=== PATIENT | male | born 1955 | race Caucasian/White ===

== ENCOUNTER 2016-09-04 15:50 | Inpatient (IN) | payer BC, MEDICARE ==
[~2016-09-04] VITALS: Ht 177.8 cm; Wt 109.0 kg
[~2016-09-04 15:50] MED LIST: ALPR0.25 PO; AMLO10TA4 PO; CARV3.1212 PO; CHOL200012 PO; FURO-93 PO; HYDR-882 PO; INSU100V SQ-INSULIN; INSU100V8 SQ
[2016-09-04] MEDS ORDERED: ASPIRIN 81 MG TABLET CHEW PO ONE (16:30)
[2016-09-04] MEDS ORDERED: SODIUM CHLORIDE FLUSH 10ML SYR IVF ONE (16:30)
[2016-09-04] MEDS ORDERED: NITROGLYCERIN SINGLE TAB 0.4 MG SL ONE ×2 (16:55→17:30)
[2016-09-04] MEDS ORDERED: ASPIRIN 81 MG TABLET CHEW ONE (16:55)
[2016-09-04] MEDS: NITROGLYCERIN SINGLE TAB 0.4 MG SL PRN ×3 (16:58→17:30)
[2016-09-04 17:04] LABS: BLOOD UREA NITROGEN 34 mg/dL (7-18)
[2016-09-04 17:09] LABS: IS PT STATUS REG ER OR PRE ER? YES
[2016-09-04] MEDS ORDERED: HEPARIN 25,000 UNITS/500ML PMX 500 ML IV PRN (17:30)
[2016-09-04] MEDS ORDERED: HEPARIN 5,000 UNITS/ML, 1ML IV ONE (17:30)
[2016-09-04] MEDS ORDERED: NITROGLYCERIN OINT 2%, 1GM TP ONE ×2 (17:30→17:57)
[2016-09-04] MEDS ORDERED: SODIUM CHLORIDE 0.9%, 500ML IVBOLUS ONE (17:30)
[2016-09-04] MEDS ORDERED: INSULIN REGULAR 100 UNITS/ML, 3ML VIAL IVPush ONE (17:30)
[2016-09-04] MEDS ORDERED: HEPARIN 5,000 UNITS/ML, 1ML ONE (17:57)
[2016-09-04] MEDS ORDERED: HEPARIN 25,000 UNITS/500ML PMX 500 ML ONE (17:57)
[2016-09-04] MEDS ORDERED: INSULIN REGULAR 100 UNITS/ML, 3ML VIAL ONE (17:59)
[2016-09-04] MEDS ORDERED: NITROGLYCERIN 0.4 MG BOTTLE (25 TABS) SL PRN (19:00)
[2016-09-04] MEDS ORDERED: LABETALOL 5MG/ML 40ML VIAL IVPush PRN (19:00)
[2016-09-04] MEDS ORDERED: DOCUSATE 100 MG CAPSULE PO PRN (19:00)
[2016-09-04] MEDS ORDERED: morphine SULFATE 10 MG/ML, 1ML IVPush PRN (19:00)
[2016-09-04] MEDS ORDERED: ONDANSETRON 2MG/ML, 2ML IVPush PRN (19:00)
[2016-09-04 19:29] VITALS: BP 141/71
[2016-09-04] MEDS: INSULIN ASPART 100 UNITS/ML, PEN SQ-INSULIN SCH (20:00)
[2016-09-04] MEDS ORDERED: INSU100V8 SQ (20:23)
[2016-09-04] MEDS ORDERED: INSULIN DETEMIR 100 UNITS/ML, PEN SQ-INSULIN SCH (21:00)
[2016-09-04] MEDS: INSULIN REGULAR 100 UNITS/ML, 3ML VIAL SQ-INSULIN SCH (21:00)
[2016-09-04] MEDS: SODIUM CHLORIDE 0.9% 1,000 ML IV SCH (21:45)
[2016-09-04 22:50] VITALS: BP 136/68
[2016-09-04] MEDS: AMLODIPINE 5 MG TABLET PO SCH (22:51)
[2016-09-04] MEDS: CARVEDILOL 3.125 MG TABLET PO SCH (22:51)
[2016-09-04] MEDS: INSULIN DETEMIR 100 UNITS/ML, PEN SQ-INSULIN SCH (22:52)
[2016-09-04 23:18] LABS: IS PT STATUS REG ER OR PRE ER? NO
[2016-09-05 00:35] VITALS: BP 126/71
[2016-09-05 02:15] VITALS: BP 125/66
[2016-09-05 05:47] LABS: ASPARTATE AMINO TRANSFERASE 43 U/L (15-37); BLOOD UREA NITROGEN 31 mg/dL (7-18)
[2016-09-05 05:51] LABS: IS PT STATUS REG ER OR PRE ER? NO
[2016-09-05] MEDS: INSULIN ASPART 100 UNITS/ML, PEN SQ-INSULIN SCH ×3 (07:00→18:12)
[2016-09-05] MEDS: SODIUM CHLORIDE 0.9% 1,000 ML IV SCH (07:11)
[2016-09-05] MEDS: HEPARIN 5,000 UNITS/ML, 1ML IV PRN (07:59)
[2016-09-05 08:06] VITALS: BP 147/77
[2016-09-05] MEDS: CARVEDILOL 3.125 MG TABLET PO SCH ×2 (08:22→22:30)
[2016-09-05] MEDS: FUROSEMIDE 20 MG TABLET PO SCH (08:22)
[2016-09-05] MEDS: INSULIN REGULAR 100 UNITS/ML, 3ML VIAL SQ-INSULIN SCH ×4 (09:20→21:00)
[2016-09-05 13:28] VITALS: BP 152/77
[2016-09-05] MEDS ORDERED: NITROGLYCERIN OINT 2%, 1GM TP ONE (13:30)
[2016-09-05] MEDS ORDERED: TICAGRELOR 90 MG TABLET ONE (15:36)
[2016-09-05] MEDS ORDERED: NITROGLYCERIN 5 MG/ML, 10ML ONE (15:36)
[2016-09-05] MEDS ORDERED: BIVALIRUDIN 250 MG ONE (15:36)
[2016-09-05] MEDS ORDERED: FENTANYL PF 100 MCG/2ML ONE (15:36)
[2016-09-05] MEDS ORDERED: VERAPAMIL 2.5 MG/ML, 2ML ONE (15:36)
[2016-09-05] MEDS ORDERED: MIDAZOLAM 1 MG/ML, 5ML ONE (15:36)
[2016-09-05] MEDS ORDERED: LIDOCAINE 2%, 20ML ONE (15:37)
[2016-09-05] MEDS: HEPARIN 25,000 UNITS/500ML PMX 500 ML IV PRN (17:19)
[2016-09-05] MEDS ORDERED: ZOLPIDEM 5MG TABLET PO PRN (17:30)
[2016-09-05] MEDS ORDERED: ACETAMINOPHEN 325 MG TABLET PO PRN ×2 (17:30→20:00)
[2016-09-05] MEDS ORDERED: BISACODYL 5 MG EC TABLET PO PRN ×2 (17:30→20:00)
[2016-09-05] MEDS ORDERED: SODIUM CHLORIDE 0.9% 1,000 ML IV SCH (17:30)
[2016-09-05] MEDS ORDERED: BISACODYL 10 MG SUPP PR PRN ×2 (17:30→20:00)
[2016-09-05 18:00] LABS: IS PT STATUS REG ER OR PRE ER? NO
[2016-09-05] MEDS ORDERED: DOCUSATE 100 MG CAPSULE PO PRN (20:00)
[2016-09-05 20:08] VITALS: BP 145/74
[2016-09-05] MEDS: AMLODIPINE 5 MG TABLET PO SCH (22:30)
[2016-09-05] MEDS: ATORVASTATIN 80 MG TABLET PO SCH (22:30)
[2016-09-05] MEDS: INSULIN DETEMIR 100 UNITS/ML, PEN SQ-INSULIN SCH (22:30)
[2016-09-05 23:44] LABS: IS PT STATUS REG ER OR PRE ER? NO
[2016-09-06] MEDS: HEPARIN 5,000 UNITS/ML, 1ML IV PRN (01:36)
[2016-09-06 01:37] VITALS: BP 125/72
[2016-09-06 05:25] LABS: BLOOD UREA NITROGEN 22 mg/dL (7-18)
[2016-09-06] MEDS: INSULIN REGULAR 100 UNITS/ML, 3ML VIAL SQ-INSULIN SCH ×2 (07:00→11:00)
[2016-09-06 08:41] VITALS: BP 128/68
[2016-09-06] MEDS: FUROSEMIDE 20 MG TABLET PO SCH (08:50)
[2016-09-06] MEDS: CARVEDILOL 3.125 MG TABLET PO SCH ×2 (08:50→21:52)
[2016-09-06] MEDS: INSULIN ASPART 100 UNITS/ML, PEN SQ-INSULIN SCH ×5 (08:52→21:41)
[2016-09-06] MEDS ORDERED: DEXTROSE 4 GM TAB.CHEW PO PRN (12:00)
[2016-09-06] MEDS ORDERED: DEXTROSE 50%, 50ML SYRINGE IVPush PRN (12:00)
[2016-09-06] MEDS ORDERED: GLUCAGON 1 MG IM PRN (12:00)
[2016-09-06] MEDS: SODIUM CHLORIDE FLUSH 10ML SYR IVF SCH ×2 (12:12→21:43)
[2016-09-06] MEDS: HEPARIN 25,000 UNITS/500ML PMX 500 ML IV PRN (12:18)
[2016-09-06] MEDS: INSULIN DETEMIR 100 UNITS/ML, PEN SQ-INSULIN SCH ×2 (12:19→17:37)
[2016-09-06] MEDS ORDERED: INSULIN ASPART 100 UNITS/ML, PEN SQ-INSULIN SCH (14:00)
[2016-09-06] MEDS ORDERED: METOPROLOL TARTRATE 25 MG TABLET PO ONE (14:00)
[2016-09-06] MEDS ORDERED: CHLORHEXIDINE MOUTHWASH 15 ML UDC MM PRN (14:00)
[2016-09-06 14:18] VITALS: BP 146/69
[2016-09-06 15:04] LABS: ASPARTATE AMINO TRANSFERASE 19 U/L (15-37); BLOOD UREA NITROGEN 20 mg/dL (7-18)
[2016-09-06 19:50] VITALS: BP 149/74
[2016-09-06] MEDS ORDERED: INSULIN DETEMIR 100 UNITS/ML, PEN SQ-INSULIN ONE (20:00)
[2016-09-06 20:45] VITALS: BP 155/78
[2016-09-06] MEDS ORDERED: SODIUM CHLORIDE FLUSH 10ML SYR IVF SCH (21:00)
[2016-09-06] MEDS ORDERED: INSULIN DETEMIR 100 UNITS/ML, PEN SQ-INSULIN SCH (21:00)
[2016-09-06] MEDS: ATORVASTATIN 80 MG TABLET PO SCH (21:42)
[2016-09-06] MEDS: AMLODIPINE 5 MG TABLET PO SCH (21:42)
[2016-09-06] MEDS: MUPIROCIN OINT 2%, 22GM TP SCH (21:42)
[2016-09-07] MEDS ORDERED: ALBUMIN HUMAN 5% 500 ML IV ONE (00:30)
[2016-09-07 00:47] VITALS: BP 150/71
[2016-09-07 04:51] VITALS: BP_SYST 147; BP_DIAS 71; BP_DIAS 76
[2016-09-07] MEDS: MUPIROCIN OINT 2%, 22GM TP SCH (04:58)
[2016-09-07] MEDS ORDERED: METOPROLOL TARTRATE 25 MG TABLET PO ONE (05:00)
[2016-09-07] MEDS ORDERED: INSULIN ASPART 100 UNITS/ML, PEN SQ-INSULIN SCH (06:00)
[2016-09-07] MEDS ORDERED: HEPARIN 1,000 UNITS/ML, 10ML ONE (06:09)
[2016-09-07] MEDS ORDERED: PAPAVERINE 30 MG/ML, 2ML ONE (06:09)
[2016-09-07 06:14] LABS: BLOOD UREA NITROGEN 21 mg/dL (7-18)
[2016-09-07] MEDS ORDERED: MIDAZOLAM 10MG/2 ML ONE (06:48)
[2016-09-07] MEDS ORDERED: FENTANYL PF 1000 MCG/20ML ONE (06:48)
[2016-09-07] MEDS ORDERED: ROCURONIUM 10 MG/ML ONE (07:14)
[2016-09-07] MEDS ORDERED: PROPOFOL 10 MG/ML, 20ML ONE (07:14)
[2016-09-07] MEDS ORDERED: POTASSIUM CHLORIDE 80 MEQ, SODIUM BICARBONATE 8.4% 10 MEQ, MAGNESIUM SULFATE 0.5 GM, LI... IV PRN (07:30)
[2016-09-07] MEDS ORDERED: CEFUROXIME 1.5 GM in SODIUM CHLORIDE 0.9% 50 ML IVPB PRN (07:30)
[2016-09-07] MEDS ORDERED: EPINEPHRINE 2 MG in SODIUM CHLORIDE 0.9% 248 ML IV SCH (07:30)
[2016-09-07] MEDS ORDERED: MANNITOL PMX 20% 500 ML IVPB PRN (07:30)
[2016-09-07] MEDS ORDERED: PHENYLEPHRINE 10 MG in SODIUM CHLORIDE 0.9% 249 ML IV PRN ×2 (07:30→10:59)
[2016-09-07] MEDS ORDERED: DEXMEDETOMIDINE 200 MCG in SODIUM CHLORIDE 0.9% 48 ML IV SCH (07:30)
[2016-09-07] MEDS ORDERED: REGULAR INSULIN 62.5 UNITS in SODIUM CHLORIDE 0.9% 249.375 ML IV PRN ×2 (07:30→10:59)
[2016-09-07] MEDS ORDERED: VANCOMYCIN 1,700 MG in SODIUM CHLORIDE 0.9% 250 ML IVPB PRN (07:30)
[2016-09-07] MEDS: INSULIN DETEMIR 100 UNITS/ML, PEN SQ-INSULIN SCH (08:00)
[2016-09-07] MEDS ORDERED: AMINOCAPROIC ACID 250 MG/ML, 20ML ONE ×2 (08:45→08:46)
[2016-09-07] MEDS ORDERED: PROTAMINE SULFATE 10 MG/ML, 25ML ONE ×2 (08:46)
[2016-09-07] MEDS: CARVEDILOL 3.125 MG TABLET PO SCH ×2 (09:00→21:01)
[2016-09-07] MEDS ORDERED: CALCIUM CHLORIDE 10%, 10ML SYR ONE (09:32)
[2016-09-07] MEDS ORDERED: SODIUM BICARBONATE 1 MEQ/ML, 50ML VIAL ONE (10:42)
[2016-09-07] MEDS ORDERED: LIDOCAINE 2% 100MG/5ML SYRINGE ONE (10:42)
[2016-09-07] MEDS ORDERED: HEPARIN 1,000 UNITS/ML, 30ML ONE (10:42)
[2016-09-07] MEDS ORDERED: ALBUMIN HUMAN 25% 50 ML ONE (10:42)
[2016-09-07] MEDS ORDERED: DEXMEDETOMIDINE 200 MCG in SODIUM CHLORIDE 0.9% 48 ML IV PRN (10:59)
[2016-09-07] MEDS ORDERED: DOBUTAMINE 250 MG in SODIUM CHLORIDE 0.9% 230 ML IV PRN (10:59)
[2016-09-07] MEDS ORDERED: SODIUM CHLORIDE 0.9% 1,000 ML IV PRN (10:59)
[2016-09-07] MEDS ORDERED: NITROGLYCERIN/D5W PMX 250 ML IV PRN (10:59)
[2016-09-07] MEDS ORDERED: MEPERIDINE/PF 25MG/0.5ML IVPush PRN (11:00)
[2016-09-07] MEDS ORDERED: BISACODYL 5 MG EC TABLET PO PRN (11:00)
[2016-09-07] MEDS ORDERED: MIDAZOLAM 1 MG/ML, 5ML IVPush PRN (11:00)
[2016-09-07] MEDS ORDERED: PROCHLORPERAZINE 5 MG/ML, 2ML IVPush PRN (11:00)
[2016-09-07] MEDS ORDERED: EPINEPHRINE 2 MG in SODIUM CHLORIDE 0.9% 248 ML IV PRN (11:00)
[2016-09-07] MEDS ORDERED: GLUCAGON 1 MG IM PRN (11:00)
[2016-09-07] MEDS ORDERED: DEXTROSE 50%, 50ML SYRINGE IVPush PRN (11:00)
[2016-09-07] MEDS ORDERED: ACETAMINOPHEN 325 MG TABLET PO PRN (11:00)
[2016-09-07] MEDS ORDERED: DEXTROSE 4 GM TAB.CHEW PO PRN (11:00)
[2016-09-07] MEDS ORDERED: BISACODYL 10 MG SUPP PR PRN (11:00)
[2016-09-07] MEDS ORDERED: ACETAMINOPHEN 650 MG SUPP PR PRN (11:00)
[2016-09-07] MEDS ORDERED: SODIUM BICARB 8.4%, 50ML SYRINGE IV PRN (11:00)
[2016-09-07] MEDS ORDERED: ONDANSETRON 2MG/ML, 2ML IVPush PRN (11:00)
[2016-09-07] MEDS ORDERED: LACTATED RINGERS 500 ML IVBOLUS PRN (11:00)
[2016-09-07 11:31] LABS: ABG COLLECTION SITE ARTERIAL LINE
[2016-09-07] MEDS: morphine SULFATE 10 MG/ML, 1ML IVPush PRN ×3 (11:55→22:41)
[2016-09-07] MEDS: MAGNESIUM SULFATE 1 GM in SODIUM CHLORIDE 0.9% 50 ML IVPB SCH (11:57)
[2016-09-07] MEDS: KSCALE TO 4.5 IV SCH ×3 (12:00→22:40)
[2016-09-07] MEDS ORDERED: CEFUROXIME 1.5 GM in SODIUM CHLORIDE 0.9% 50 ML IVPB SCH (12:00)
[2016-09-07] MEDS: OXYcodone IR 5MG TABLET PO PRN ×2 (15:24→19:10)
[2016-09-07] MEDS: VANCOMYCIN 1,600 MG in SODIUM CHLORIDE 0.9% 250 ML IVPB SCH (17:24)
[2016-09-07] MEDS: HYDROcodone/APAP 10/325 MG TABLET PO PRN ×2 (17:24→22:41)
[2016-09-07] MEDS: CEFUROXIME 1.5 GM in SODIUM CHLORIDE 0.9% 50 ML IVPB SCH (19:10)
[2016-09-07] MEDS: SODIUM CHLORIDE FLUSH 10ML SYR IVF SCH (20:31)
[2016-09-07] MEDS: MUPIROCIN OINT 2%, 22GM NAS SCH (20:31)
[2016-09-07] MEDS: DOCUSATE 100 MG CAPSULE PO SCH (20:31)
[2016-09-07] MEDS: INSULIN ASPART 100 UNITS/ML, PEN SQ-INSULIN PRN ×3 (20:32→22:40)
[2016-09-07] MEDS: ATORVASTATIN 80 MG TABLET PO SCH (21:01)
[2016-09-08] MEDS: INSULIN ASPART 100 UNITS/ML, PEN SQ-INSULIN PRN ×5 (00:20→21:13)
[2016-09-08] MEDS: OXYcodone IR 5MG TABLET PO PRN ×2 (01:37→06:33)
[2016-09-08] MEDS: HYDROcodone/APAP 10/325 MG TABLET PO PRN ×2 (04:10→20:57)
[2016-09-08 04:38] LABS: ABG COLLECTION SITE ARTERIAL LINE
[2016-09-08 04:49] LABS: BLOOD UREA NITROGEN 27 mg/dL (7-18)
[2016-09-08] MEDS: KSCALE TO 4.5 IV SCH ×3 (05:00→16:45)
[2016-09-08 05:42] LABS: DIFF TOTAL CELLS COUNTED 100 CELL DIFF
[2016-09-08 05:44] LABS: VERIFY COUNTS? YES
[2016-09-08 05:45] LABS: POLYCHROMASIA 1+
[2016-09-08] MEDS: VANCOMYCIN 1,600 MG in SODIUM CHLORIDE 0.9% 250 ML IVPB SCH (06:25)
[2016-09-08 06:41] VITALS: BP 120/71
[2016-09-08] MEDS: CEFUROXIME 1.5 GM in SODIUM CHLORIDE 0.9% 50 ML IVPB SCH (08:03)
[2016-09-08] MEDS: SODIUM CHLORIDE FLUSH 10ML SYR IVF SCH ×2 (08:38→20:50)
[2016-09-08] MEDS: CARVEDILOL 3.125 MG TABLET PO SCH ×2 (08:39→20:50)
[2016-09-08] MEDS: PANTOPRAZOLE 40 MG IV IVPush SCH (08:39)
[2016-09-08] MEDS: DOCUSATE 100 MG CAPSULE PO SCH ×2 (08:39→20:51)
[2016-09-08] MEDS: ASPIRIN 81 MG TABLET EC PO SCH (08:40)
[2016-09-08] MEDS: INSULIN DETEMIR 100 UNITS/ML, PEN SQ-INSULIN SCH (08:45)
[2016-09-08] MEDS: MUPIROCIN OINT 2%, 22GM NAS SCH ×2 (08:46→20:49)
[2016-09-08] MEDS ORDERED: MAGNESIUM HYDROXIDE 8%, 30ML UDC PO PRN (09:00)
[2016-09-08] MEDS: MAGNESIUM SULFATE 1 GM in SODIUM CHLORIDE 0.9% 50 ML IVPB SCH (11:00)
[2016-09-08 17:09] VITALS: BP 115/70
[2016-09-08 19:42] VITALS: BP 130/68
[2016-09-08] MEDS: CHLORHEXIDINE MOUTHWASH 15 ML UDC MM SCH (20:48)
[2016-09-08] MEDS: ATORVASTATIN 80 MG TABLET PO SCH (20:51)
[2016-09-09 01:13] VITALS: BP 105/68
[2016-09-09 03:30] LABS: BLOOD UREA NITROGEN 43 mg/dL (7-18)
[2016-09-09 05:01] LABS: ABG COLLECTION SITE RIGHT RADIAL; COLLATERAL CIRCULATION TESTING NORMAL
[2016-09-09 06:55] VITALS: BP 111/64
[2016-09-09] MEDS: INSULIN DETEMIR 100 UNITS/ML, PEN SQ-INSULIN SCH (07:45)
[2016-09-09] MEDS: HYDROcodone/APAP 10/325 MG TABLET PO PRN ×2 (07:45→16:48)
[2016-09-09] MEDS: INSULIN ASPART 100 UNITS/ML, PEN SQ-INSULIN PRN ×4 (07:45→21:45)
[2016-09-09] MEDS: ASPIRIN 81 MG TABLET EC PO SCH (07:46)
[2016-09-09] MEDS: MUPIROCIN OINT 2%, 22GM NAS SCH ×2 (07:46→21:47)
[2016-09-09] MEDS: CHLORHEXIDINE MOUTHWASH 15 ML UDC MM SCH ×2 (07:46→21:47)
[2016-09-09] MEDS: DOCUSATE 100 MG CAPSULE PO SCH ×2 (07:46→21:48)
[2016-09-09] MEDS: CLOPIDOGREL 75 MG TABLET PO SCH (07:46)
[2016-09-09] MEDS: CARVEDILOL 3.125 MG TABLET PO SCH ×2 (07:46→21:48)
[2016-09-09] MEDS: SODIUM CHLORIDE FLUSH 10ML SYR IVF SCH ×2 (07:47→21:50)
[2016-09-09] MEDS: ENOXAPARIN 40 MG/0.4 ML SQ SCH (07:47)
[2016-09-09] MEDS: PANTOPRAZOLE 40 MG IV IVPush SCH (07:47)
[2016-09-09] MEDS ORDERED: ENOXAPARIN 40 MG/0.4 ML SQ SCH (09:00)
[2016-09-09] MEDS ORDERED: FUROSEMIDE 20 MG/2 ML IV SCH ×2 (09:00)
[2016-09-09] MEDS ORDERED: POTASSIUM CHLORIDE 10 MEQ TABLET.ER PO SCH (09:00)
[2016-09-09] MEDS: MAGNESIUM SULFATE 1 GM in SODIUM CHLORIDE 0.9% 50 ML IVPB SCH (11:00)
[2016-09-09 14:45] VITALS: BP 120/64
[2016-09-09 20:16] VITALS: BP 125/73
[2016-09-09] MEDS: ATORVASTATIN 80 MG TABLET PO SCH (21:48)
[2016-09-10 00:48] VITALS: BP 127/62
[2016-09-10] MEDS: OXYcodone IR 5MG TABLET PO PRN ×3 (01:50→16:37)
[2016-09-10 04:54] LABS: BLOOD UREA NITROGEN 49 mg/dL (7-18)
[2016-09-10 07:52] VITALS: BP 122/64
[2016-09-10] MEDS: ASPIRIN 81 MG TABLET EC PO SCH (08:55)
[2016-09-10] MEDS: DOCUSATE 100 MG CAPSULE PO SCH ×2 (08:55→21:35)
[2016-09-10] MEDS: PANTOPROZOLE 40MG TABLET PO SCH (08:55)
[2016-09-10] MEDS: CARVEDILOL 3.125 MG TABLET PO SCH ×2 (08:56→21:35)
[2016-09-10] MEDS: CLOPIDOGREL 75 MG TABLET PO SCH (08:56)
[2016-09-10] MEDS: SODIUM CHLORIDE FLUSH 10ML SYR IVF SCH ×2 (08:57→21:49)
[2016-09-10] MEDS: CHLORHEXIDINE MOUTHWASH 15 ML UDC MM SCH (08:57)
[2016-09-10] MEDS: MUPIROCIN OINT 2%, 22GM NAS SCH ×2 (08:57→21:35)
[2016-09-10] MEDS: ENOXAPARIN 40 MG/0.4 ML SQ SCH (08:58)
[2016-09-10] MEDS: INSULIN ASPART 100 UNITS/ML, PEN SQ-INSULIN SCH ×4 (08:59→21:47)
[2016-09-10] MEDS: INSULIN DETEMIR 100 UNITS/ML, PEN SQ-INSULIN SCH (08:59)
[2016-09-10] MEDS ORDERED: CLOPIDOGREL 75 MG TABLET PO SCH (09:00)
[2016-09-10 14:30] VITALS: BP 132/74
[2016-09-10] MEDS ORDERED: INSULIN DETEMIR 100 UNITS/ML, PEN SQ-INSULIN ONE (16:30)
[2016-09-10 19:32] VITALS: BP 124/68
[2016-09-10] MEDS: ATORVASTATIN 80 MG TABLET PO SCH (21:35)
[2016-09-10] MEDS: HYDROcodone/APAP 10/325 MG TABLET PO PRN (21:44)
[2016-09-11 00:42] VITALS: BP 143/67
[2016-09-11] MEDS: OXYcodone IR 5MG TABLET PO PRN ×4 (01:15→20:47)
[2016-09-11 04:32] LABS: BLOOD UREA NITROGEN 44 mg/dL (7-18)
[2016-09-11 06:34] VITALS: BP 138/77
[2016-09-11] MEDS: PANTOPROZOLE 40MG TABLET PO SCH (08:28)
[2016-09-11] MEDS: CARVEDILOL 3.125 MG TABLET PO SCH ×2 (08:28→20:47)
[2016-09-11] MEDS: ASPIRIN 81 MG TABLET EC PO SCH (08:28)
[2016-09-11] MEDS: CLOPIDOGREL 75 MG TABLET PO SCH (08:28)
[2016-09-11] MEDS: DOCUSATE 100 MG CAPSULE PO SCH ×2 (08:28→20:47)
[2016-09-11] MEDS: ENOXAPARIN 40 MG/0.4 ML SQ SCH (08:29)
[2016-09-11] MEDS: MUPIROCIN OINT 2%, 22GM NAS SCH ×2 (08:29→20:47)
[2016-09-11] MEDS: SODIUM CHLORIDE FLUSH 10ML SYR IVF SCH ×3 (08:29→20:45)
[2016-09-11] MEDS: INSULIN ASPART 100 UNITS/ML, PEN SQ-INSULIN SCH ×4 (08:30→20:47)
[2016-09-11] MEDS: INSULIN DETEMIR 100 UNITS/ML, PEN SQ-INSULIN SCH ×2 (08:30→20:46)
[2016-09-11 12:48] VITALS: BP 128/74
[2016-09-11] MEDS ORDERED: BISACODYL 5 MG EC TABLET PO PRN ×2 (13:30→14:00)
[2016-09-11] MEDS ORDERED: DEXTROSE 50%, 50ML SYRINGE IVPush PRN ×2 (13:30→14:00)
[2016-09-11] MEDS ORDERED: ACETAMINOPHEN 650 MG SUPP PR PRN ×2 (13:30→14:00)
[2016-09-11] MEDS ORDERED: SODIUM CHLORIDE FLUSH 10ML SYR IVF SCH (13:30)
[2016-09-11] MEDS ORDERED: DEXTROSE 4 GM TAB.CHEW PO PRN ×2 (13:30→14:00)
[2016-09-11] MEDS ORDERED: ACETAMINOPHEN 325 MG TABLET PO PRN ×2 (13:30→14:00)
[2016-09-11] MEDS ORDERED: BISACODYL 10 MG SUPP PR PRN ×2 (13:30→14:00)
[2016-09-11] MEDS: FUROSEMIDE 20 MG/2 ML IV SCH (13:40)
[2016-09-11] MEDS ORDERED: GLUCAGON 1 MG IM PRN (14:00)
[2016-09-11] MEDS ORDERED: LIDOCAINE 1%, 20ML ONE (14:59)
[2016-09-11] MEDS: HYDROcodone/APAP 10/325 MG TABLET PO PRN (17:44)
[2016-09-11 20:06] VITALS: BP_SYST 160; BP_SYST 163; BP_DIAS 73; BP_DIAS 78
[2016-09-11 20:12] VITALS: BP 141/72
[2016-09-11] MEDS: ATORVASTATIN 80 MG TABLET PO SCH (20:47)
[2016-09-12 01:51] VITALS: BP 119/75
[2016-09-12 05:45] LABS: BLOOD UREA NITROGEN 42 mg/dL (7-18)
[2016-09-12] MEDS: INSULIN ASPART 100 UNITS/ML, PEN SQ-INSULIN SCH ×4 (07:00→21:30)
[2016-09-12 07:39] VITALS: BP 171/67
[2016-09-12] MEDS: FUROSEMIDE 20 MG/2 ML IV SCH (08:28)
[2016-09-12] MEDS: PANTOPROZOLE 40MG TABLET PO SCH (08:28)
[2016-09-12] MEDS: CLOPIDOGREL 75 MG TABLET PO SCH (08:28)
[2016-09-12] MEDS: INSULIN DETEMIR 100 UNITS/ML, PEN SQ-INSULIN SCH ×2 (08:28→21:28)
[2016-09-12] MEDS: ASPIRIN 81 MG TABLET EC PO SCH (08:28)
[2016-09-12] MEDS: MUPIROCIN OINT 2%, 22GM NAS SCH (08:29)
[2016-09-12] MEDS: DOCUSATE 100 MG CAPSULE PO SCH ×2 (08:29→21:29)
[2016-09-12] MEDS: SODIUM CHLORIDE FLUSH 10ML SYR IVF SCH ×2 (08:29→21:27)
[2016-09-12] MEDS: ENOXAPARIN 40 MG/0.4 ML SQ SCH (08:29)
[2016-09-12] MEDS: AMLODIPINE 5 MG TABLET PO SCH (10:05)
[2016-09-12] MEDS: MAGNESIUM HYDROXIDE 8%, 30ML UDC PO SCH (10:06)
[2016-09-12] MEDS: CARVEDILOL 6.25 MG TABLET PO SCH ×2 (10:06→21:29)
[2016-09-12 14:00] VITALS: BP 125/69
[2016-09-12 18:36] VITALS: BP 145/71
[2016-09-12] MEDS: ATORVASTATIN 80 MG TABLET PO SCH (21:29)
[2016-09-12] MEDS: OXYcodone IR 5MG TABLET PO PRN (21:33)
[2016-09-13 00:45] VITALS: BP 132/71
[2016-09-13 05:37] LABS: BLOOD UREA NITROGEN 36 mg/dL (7-18)
[2016-09-13 05:51] VITALS: BP 134/76
[2016-09-13] MEDS ORDERED: CLOP75TA PO (07:14)
[2016-09-13] MEDS ORDERED: CARV6.2512 PO (07:14)
[2016-09-13] MEDS ORDERED: HYDR-3307 PO (07:14)
[2016-09-13] MEDS ORDERED: ATOR80TA75 PO (07:14)
[2016-09-13] MEDS ORDERED: ASPI-621 PO (07:14)
[2016-09-13 07:40] VITALS: BP 165/71
[2016-09-13] MEDS: INSULIN ASPART 100 UNITS/ML, PEN SQ-INSULIN SCH (07:42)
[2016-09-13] MEDS: AMLODIPINE 5 MG TABLET PO SCH (07:43)
[2016-09-13] MEDS: CLOPIDOGREL 75 MG TABLET PO SCH (07:43)
[2016-09-13] MEDS: ENOXAPARIN 40 MG/0.4 ML SQ SCH (07:43)
[2016-09-13] MEDS: ASPIRIN 81 MG TABLET EC PO SCH (07:43)
[2016-09-13] MEDS: INSULIN DETEMIR 100 UNITS/ML, PEN SQ-INSULIN SCH (07:43)
[2016-09-13] MEDS: DOCUSATE 100 MG CAPSULE PO SCH (07:44)
[2016-09-13] MEDS: CARVEDILOL 6.25 MG TABLET PO SCH (07:44)
[2016-09-13] MEDS: FUROSEMIDE 20 MG/2 ML IV SCH (07:44)
[2016-09-13] MEDS: MAGNESIUM HYDROXIDE 8%, 30ML UDC PO SCH (07:45)
[2016-09-13] MEDS: SODIUM CHLORIDE FLUSH 10ML SYR IVF SCH (07:45)
[2016-09-13] MEDS: PANTOPROZOLE 40MG TABLET PO SCH (07:45)
== END 2016-09-13 11:50 | disposition home or self-care (01) | DRG 233 ==
LOC: ED 17:59 → EDIP 18:32 → 5SO 19:07 → CSU 09-07 08:24 → 5SO 09-08 16:17 → DCLOUNGE 09-13 11:11
PROVIDERS: ADMIT Internal Medicine; ATTEND Internal Medicine
PROC: 4A023N7 Measurement of Cardiac Sampling and Pressure, Left Heart, Percutaneous Approach (ICD-10-PCS; 2016-09-05)
PROC: B2111ZZ Fluoroscopy of Multiple Coronary Arteries using Low Osmolar Contrast (ICD-10-PCS; 2016-09-05)
PROC: B2151ZZ Fluoroscopy of Left Heart using Low Osmolar Contrast (ICD-10-PCS; 2016-09-05)
PROC: 021109W Bypass Coronary Artery, Two Arteries from Aorta with Autologous Venous Tissue, Open Approach (ICD-10-PCS; 2016-09-07)
PROC: 06BP4ZZ Excision of Right Saphenous Vein, Percutaneous Endoscopic Approach (ICD-10-PCS; 2016-09-07)
PROC: 5A1221Z Performance of Cardiac Output, Continuous (ICD-10-PCS; 2016-09-07)
PROC: 5A1935Z Respiratory Ventilation, Less than 24 Consecutive Hours (ICD-10-PCS; 2016-09-07)
PROC: 0BH17EZ Insertion of Endotracheal Airway into Trachea, Via Natural or Artificial Opening (ICD-10-PCS; 2016-09-07)
PROC: 02100Z9 Bypass Coronary Artery, One Artery from Left Internal Mammary, Open Approach (ICD-10-PCS; principal; 2016-09-07 07:30)
PROC: 0W9B3ZZ Drainage of Left Pleural Cavity, Percutaneous Approach (ICD-10-PCS; 2016-09-11)
DX: I21.4 Non-ST elevation (NSTEMI) myocardial infarction (principal); E43 Unspecified severe protein-calorie malnutrition; N17.9 Acute kidney failure, unspecified; Z99.11 Dependence on respirator [ventilator] status; J90 Pleural effusion, not elsewhere classified; E11.22 Type 2 diabetes mellitus with diabetic chronic kidney disease; E11.65 Type 2 diabetes mellitus with hyperglycemia; E66.9 Obesity, unspecified; I13.10 Hypertensive heart and chronic kidney disease without heart failure, with stage 1 through stage 4 chronic kidney disease, or unspecified chronic kidney disease; Z86.73 Personal history of transient ischemic attack (TIA), and cerebral infarction without residual deficits; Z88.2 Allergy status to sulfonamides; Z87.891 Personal history of nicotine dependence; I65.29 Occlusion and stenosis of unspecified carotid artery; N18.3 Chronic kidney disease, stage 3 (moderate); E78.5 Hyperlipidemia, unspecified; Z68.34 Body mass index [BMI] 34.0-34.9, adult; N28.9 Disorder of kidney and ureter, unspecified; I25.119 Atherosclerotic heart disease of native coronary artery with unspecified angina pectoris
CPT/HCPCS: 32555; 36415; 36600; 71010; 71020; 80048; 80053; 80061; 81001; 81003; 82040; 82306; 82330; 82436; 82570; 82800; 82803; 82810; 82947; 82962; 83036; 83735; 83880; 83970; 84100; 84132; 84133; 84156; 84295; 84300; 84439; 84443; 84484; 85014; 85018; 85025; 85049; 85347; 85520; 85610; 85730; 86850; 86900; 86923; 87081; 93005; 93306; 93312; 93321; 93325; 93454; 93880; 94002; 94150; 96374; 96375; 99156; 99157; C1760; C1894; J0583; J0697; J1644; J1650; J1815; J2250; J2405; J2704; J2720; J3010; J3370; J3475; J3480; J3490; P9045; P9047; C1751; C9113; J0171; J1940; J2270; J2370; J2440; J7030; J7040; J7050; Q9967

== ENCOUNTER 2017-01-12 14:06 | Inpatient (IN) | payer BC, MEDICARE ==
[~2017-01-12] VITALS: Ht 177.8 cm; Wt 102.0 kg
[~2017-01-12 14:06] MED LIST changes: +ASPI-621 PO; +ATOR-2 PO; +CARV6.2512 PO; -CHOL200012 PO; +CHOL200074 PO; +CLOP75TA PO; +HYDR-3307 PO
[2017-01-12] MEDS ORDERED: SODIUM CHLORIDE FLUSH 10ML SYR IVF ONE (14:30)
[2017-01-12 14:49] LABS: HEMATOCRIT 41.8 % (39.2-51.8); HEMOGLOBIN 13.8 g/dL (13.7-18.0); WHITE BLOOD COUNT 7.1 x10^3/uL (3.4-10)
[2017-01-12 15:00] LABS: BLOOD UREA NITROGEN 27 mg/dL (7-18)
[2017-01-12 15:04] LABS: IS PT STATUS REG ER OR PRE ER? YES
[2017-01-12] MEDS ORDERED: AZITHROMYCIN 500 MG in SODIUM CHLORIDE 0.9% 250 ML IV ONE (16:00)
[2017-01-12] MEDS ORDERED: CEFTRIAXONE PMX 1GM/50ML 50 ML IV ONE (16:00)
[2017-01-12] MEDS ORDERED: CEFTRIAXONE PMX 1GM/50ML 50 ML ONE (16:08)
[2017-01-12] MEDS ORDERED: SODIUM CHLORIDE 0.9% 1,000 ML IV SCH (17:03)
[2017-01-12] MEDS ORDERED: OMNIPAQUE 350 MG/ML, 100ML BOTTLE ONE (17:30)
[2017-01-12] MEDS ORDERED: ONDANSETRON 2MG/ML, 2ML IVPush PRN (17:30)
[2017-01-12] MEDS ORDERED: ONDANSETRON ODT 4 MG PO PRN (17:30)
[2017-01-12] MEDS ORDERED: ACETAMINOPHEN 325 MG TABLET PO PRN (17:30)
[2017-01-12] MEDS ORDERED: GUAIFENESIN/DM 200-20MG, 10ML UDC PO PRN (17:30)
[2017-01-12] MEDS ORDERED: PLEASE ENTER WEIGHT MC SCH ×2 (18:00→18:30)
[2017-01-12 20:02] VITALS: BP 133/64
[2017-01-12] MEDS: AMLODIPINE 5 MG TABLET PO SCH (21:00)
[2017-01-12] MEDS: ATORVASTATIN 80 MG TABLET PO SCH (21:13)
[2017-01-12] MEDS: CARVEDILOL 6.25 MG TABLET PO SCH (21:13)
[2017-01-12] MEDS: CHOLECALCIFEROL 1,000 UNIT TABLET PO SCH (21:13)
[2017-01-12] MEDS: GUAIFENESIN ER 600 MG TABLET PO SCH (21:13)
[2017-01-12] MEDS: ENOXAPARIN 40 MG/0.4 ML SQ SCH (21:14)
[2017-01-12] MEDS: INSULIN DETEMIR 100 UNITS/ML, PEN SQ-INSULIN SCH (21:43)
[2017-01-12] MEDS: INSULIN ASPART 100 UNITS/ML, PEN SQ-INSULIN SCH (21:43)
[2017-01-12 21:47] LABS: PATH.CAST-FLAG NOT PRESENT; SPERM-FLAG NOT PRESENT; SRC-FLAG NOT PRESENT; XTAL-FLAG NOT PRESENT; YLC-FLAG NOT PRESENT
[2017-01-13 03:18] LABS: RAPID INFLUENZA A POSITIVE (Negative); RAPID INFLUENZA B Negative (Negative)
[2017-01-13 03:22] VITALS: BP 125/63
[2017-01-13 07:19] LABS: HEMATOCRIT 39.4 % (39.2-51.8); WHITE BLOOD COUNT 4.9 x10^3/uL (3.4-10)
[2017-01-13 07:23] LABS: BLOOD UREA NITROGEN 27 mg/dL (7-18)
[2017-01-13] MEDS: INSULIN ASPART 100 UNITS/ML, PEN SQ-INSULIN SCH ×4 (08:37→22:54)
[2017-01-13] MEDS: CARVEDILOL 6.25 MG TABLET PO SCH ×2 (08:38→22:53)
[2017-01-13] MEDS: GUAIFENESIN ER 600 MG TABLET PO SCH ×2 (08:38→22:52)
[2017-01-13] MEDS: ASPIRIN 81 MG TABLET EC PO SCH (08:38)
[2017-01-13] MEDS: OSELTAMIVIR 75 MG CAPSULE PO SCH ×2 (08:38→22:53)
[2017-01-13 09:51] VITALS: BP 105/60
[2017-01-13 13:32] VITALS: BP 121/57
[2017-01-13] MEDS: CEFTRIAXONE PMX 1GM/50ML 50 ML IV SCH (16:06)
[2017-01-13] MEDS: ENOXAPARIN 40 MG/0.4 ML SQ SCH (18:43)
[2017-01-13] MEDS: AZITHROMYCIN 500 MG in SODIUM CHLORIDE 0.9% 250 ML IV SCH (18:43)
[2017-01-13 19:56] VITALS: BP 116/58
[2017-01-13] MEDS: CHOLECALCIFEROL 1,000 UNIT TABLET PO SCH (22:53)
[2017-01-13] MEDS: AMLODIPINE 5 MG TABLET PO SCH (22:53)
[2017-01-13] MEDS: ATORVASTATIN 80 MG TABLET PO SCH (22:53)
[2017-01-13] MEDS: INSULIN DETEMIR 100 UNITS/ML, PEN SQ-INSULIN SCH (22:54)
[2017-01-14 03:05] VITALS: BP 132/75
[2017-01-14 06:17] LABS: BLOOD UREA NITROGEN 24 mg/dL (7-18)
[2017-01-14 08:23] VITALS: BP 134/75
[2017-01-14] MEDS: INSULIN ASPART 100 UNITS/ML, PEN SQ-INSULIN SCH ×4 (08:40→22:31)
[2017-01-14] MEDS: ASPIRIN 81 MG TABLET EC PO SCH (08:50)
[2017-01-14] MEDS: GUAIFENESIN ER 600 MG TABLET PO SCH ×2 (08:50→22:31)
[2017-01-14] MEDS: CARVEDILOL 6.25 MG TABLET PO SCH ×2 (08:50→22:31)
[2017-01-14] MEDS: OSELTAMIVIR 75 MG CAPSULE PO SCH ×2 (08:50→22:30)
[2017-01-14 12:43] VITALS: BP 135/79
[2017-01-14] MEDS: CEFTRIAXONE PMX 1GM/50ML 50 ML IV SCH (17:14)
[2017-01-14] MEDS: AZITHROMYCIN 500 MG in SODIUM CHLORIDE 0.9% 250 ML IV SCH (18:50)
[2017-01-14] MEDS: ENOXAPARIN 40 MG/0.4 ML SQ SCH (18:50)
[2017-01-14 19:50] VITALS: BP 138/78
[2017-01-14] MEDS: CHOLECALCIFEROL 1,000 UNIT TABLET PO SCH (22:31)
[2017-01-14] MEDS: ATORVASTATIN 80 MG TABLET PO SCH (22:31)
[2017-01-14] MEDS: AMLODIPINE 5 MG TABLET PO SCH (22:31)
[2017-01-14] MEDS: INSULIN DETEMIR 100 UNITS/ML, PEN SQ-INSULIN SCH (22:32)
[2017-01-15 02:44] VITALS: BP 139/74
[2017-01-15] MEDS ORDERED: CEFD300C37 PO (09:04)
[2017-01-15] MEDS ORDERED: OSEL75CA PO (09:04)
[2017-01-15] MEDS ORDERED: AZIT500T PO (09:04)
[2017-01-15] MEDS: OSELTAMIVIR 75 MG CAPSULE PO SCH (09:19)
[2017-01-15] MEDS: ASPIRIN 81 MG TABLET EC PO SCH (09:19)
[2017-01-15] MEDS: CARVEDILOL 6.25 MG TABLET PO SCH (09:19)
[2017-01-15] MEDS: INSULIN ASPART 100 UNITS/ML, PEN SQ-INSULIN SCH ×2 (09:19→12:07)
[2017-01-15] MEDS: GUAIFENESIN ER 600 MG TABLET PO SCH (09:20)
[2017-01-15 09:44] VITALS: BP 145/75
[2017-01-15] MEDS ORDERED: CARV3.1212 PO (11:33)
== END 2017-01-15 13:38 | disposition home or self-care (01) | DRG 193 ==
LOC: ED 16:38 → EDIP 16:39 → ED 16:49 → 4EST 18:15
PROVIDERS: ADMIT Internal Medicine; ATTEND Internal Medicine
DX: J12.9 Viral pneumonia, unspecified (principal); J96.01 Acute respiratory failure with hypoxia; E87.1 Hypo-osmolality and hyponatremia; J10.08 Influenza due to other identified influenza virus with other specified pneumonia; J15.9 Unspecified bacterial pneumonia; N18.3 Chronic kidney disease, stage 3 (moderate); E11.22 Type 2 diabetes mellitus with diabetic chronic kidney disease; I13.10 Hypertensive heart and chronic kidney disease without heart failure, with stage 1 through stage 4 chronic kidney disease, or unspecified chronic kidney disease; I25.10 Atherosclerotic heart disease of native coronary artery without angina pectoris; I25.2 Old myocardial infarction; R79.1 Abnormal coagulation profile; Z79.4 Long term (current) use of insulin; Z86.73 Personal history of transient ischemic attack (TIA), and cerebral infarction without residual deficits; Z87.891 Personal history of nicotine dependence; Z95.1 Presence of aortocoronary bypass graft; Z88.2 Allergy status to sulfonamides
CPT/HCPCS: 36415; 71010; 71275; 80048; 81001; 82040; 82962; 83036; 83735; 83880; 84100; 84484; 85025; 85379; 85610; 85730; 87040; 87400; 93005; 96365; J0456; J0696; J1650; J1815; Q9967; J7030; J7050